=== PATIENT | female | born 1970 | race African-American/Black ===

== ENCOUNTER 2018-07-20 17:24 | Inpatient (IN) | payer OTHER ==
[~2018-07-20] VITALS: Ht 152.4 cm; Wt 131.1 kg
[2018-07-20 17:25] VITALS: BP 191/104
[2018-07-20 18:04] LABS: HEMATOCRIT 27.3 % (37.0-47.0); MCH 17.3 pg (26.0-34.0); MCHC 29.5 g/dL (28.0-37.0); MCV 58.5 fL (80.0-100.0); PLATELET COUNT 346 thou/uL (150-400); RBC 4.66 mil/uL (4.20-5.00); RDW 20.8 % (10.5-14.5); WBC 7.4 thou/uL (4.0-11.0)
[2018-07-20 18:09] LABS: POTASSIUM 3.2 mmol/L (3.5-5.1)
[2018-07-20 18:24] LABS: ALBUMIN 3.5 g/dL (3.4-5.0); TOTAL BILIRUBIN 0.3 mg/dL (<0.1-1.0); TOTAL PROTEIN 8.5 g/dL (6.4-8.2)
[2018-07-20 18:38] LABS: ABSOLUTE NEUTROPHILS 5.7 thou/uL (1.4-8.2)
[2018-07-20 18:39] LABS: ANISOCYTOSIS 2+; HYPOCHROMASIA 2+; MICROCYTES 2+; TARGET CELLS OCCASIONAL
[2018-07-20 18:53] LABS: URINE BILIRUBIN NEGATIVE (Negative); URINE BLOOD TRACE (Negative); URINE CLARITY CLEAR; URINE COLOR YELLOW; URINE GLUCOSE-RANDOM* NEGATIVE (Negative); URINE KETONES NEGATIVE (Negative); URINE LEUKOCYTES-REFLEX TRACE (Negative); URINE NITRITE-REFLEX NEGATIVE (Negative); URINE PROTEIN (DIPSTICK) NEGATIVE (Negative); URINE SPECIFIC GRAVITY 1.015 (1.005-1.035); URINE UROBILINOGEN 0.2 E.U./dl (0.2-1.0)
[2018-07-20 21:11] VITALS: BP 172/11
[2018-07-20 21:24] VITALS: BP 172/11
[2018-07-20 21:58] VITALS: BP 172/92
[2018-07-21 04:43] VITALS: BP 136/80
[2018-07-21 05:58] LABS: CALCIUM 8.6 mg/dL (8.5-10.1); CREATININE 0.8 mg/dL (0.6-1.0); POTASSIUM 3.6 mmol/L (3.5-5.1)
[2018-07-21 05:59] LABS: % SATURATION 3 % (20-39); IRON 13 ug/dL (50-170); TIBC 404 ug/dL (250-450)
[2018-07-21 06:04] LABS: CHOLESTEROL 214 mg/dL (<200); HDL CHOLESTEROL 47 mg/dL (>40); TC:HDL 4.6 Ratio (Not establshd)
[2018-07-21 06:07] LABS: LDL CHOLESTEROL 150 mg/dL (<100); TRIGLYCERIDE 88 mg/dL (<150); VLDL 18 mg/dL (<40)
[2018-07-21 06:27] LABS: FOLIC ACID 10.9 ng/mL (8.6-58.9)
[2018-07-21 06:31] LABS: AMP/METHAMP Negative (Negative); BARBITURATES Negative (Negative); BENZODIAZEPINES Negative (Negative); COCAINE Negative (Negative); METHADONE Negative (Negative); OPIATES Negative (Negative); PCP Negative (Negative)
--- NOTE | 2018-07-21 07:38 | NUR ---
admit pt admitted to room 455 via ed with chf, edema and cough. i liter ivf's given in ed. denies pain on arrival, vss. up with sba. on room air, admission assessment, history med rec completed. continue to monitor.
--- NOTE | 2018-07-21 07:58 | EKG ---
[address] [place] [address] ELECTROCARDIOGRAM REPORT Name: DEVANTE CRENSHAW Room #: 455-P ADM IN M.R.#: [id number] ������������������ Admission: 07/20/18 ������������������ Attend Phys: Deonna Magaña Discharge: ������������������ Date of : 72 Report #: [id number] ����������������������������������������������������������������� [id number] THIS REPORT FOR: //name// [facility] ED Test Date: 2018-07-20 Test Time: 18:27:09 Pat Name: DEVANTE CRENSHAW Department: Room: [facility] Gender: F Student Advisor: : 1970 Requested By: Ayala Shah Order Number: [id number] MD: Jose Han Measurements Intervals [place] Rate: 112 P: 49 [place]: 166 QRS: -16 QRSD: 99 T: 52 QT: 345 QTc: 471 Interpretive Statements Sinus tachycardia Left ventricular hypertrophy Inferior infarct, old No previous ECG available for comparison Electronically Signed On 07-21-2018 7:57:54 CDT by Jose Han [email or web address] ��������������������������������������������� <ELECTRONICALLY SIGNED> ���������������������������������������� By: Jose Han MD, [facility] ��������������������������������������������� 07/21/18 0757 [id number] 182 Jose Han MD, FACC /EPI
--- NOTE | 2018-07-21 09:22 | 2DMMODE ---
[facility] [address] [place] [address] 2 D/M-MODE ECHOCARDIOGRAM Name: DEVANTE CRENSHAW Room #: 455-P ADM IN M.R.#: [id number] ������������� Admission: 07/20/18 ������������� Attend Phys: Deonna Keen Discharge: ��� ������������� ��� Date of : 72 Date of Service: 07/21/18 0921 �� Report #: [id number] �������� ��������������������������������������������[id number] THIS REPORT FOR: //name// APPROVED REPORT Study performed: 07/21/2018 08:29:01 EXAM: Comprehensive 2D, Doppler, and color-flow Echocardiogram Patient Location: Echo lab Room #: [facility] Status: routine BSA: 2.19 HR: 110 bpm BP: 136/80 mmHg Rhythm: NSR/TACHYCARDIA Other Information Study Quality: Good Technically limited study due to morbid obesity. Indications Syncope Cough. Hx: CHF, HTN. 2D Dimensions RVDd: 37.89 mm IVSd: 13.00 (7-11mm) LVOT Diam: 21.66 (18-24mm) LVDd: 60.05 mm PWd: 13.00 (7-11mm) Ascending Ao: 35.50 (22-36mm) LVDs: 46.95 (25-40mm) Aortic Root: 36.53 mm Volumes Left Atrial Volume (Systole) Single Plane 4CH: 85.33 mL Single Plane 2CH: 71.07 mL LA ESV Index: 38.00 mL/m2 Aortic Valve AoV Peak Roberto Carlos.: 1.87 m/s AO Peak Gr.: 14.00 mmHg LVOT Max P.07 mmHg LVOT Max V: 1.23 m/s DIONNA Vmax: 2.43 cm2 Mitral Valve [facility] [address] [address] 2 D/M-MODE ECHOCARDIOGRAM Name: DEVANTE CRENSHAW Room #: 455-P ADM IN .R.#: [id number] ������������� Admission: 07/20/18 ������������� Attend Phys: Deonna Keen Discharge: ��� ������������� ��� Date of : 72 Date of Service: 07/21/18 0921 �� Report #: [id number] �������� ��������������������������������������������[id number] E/A Ratio: 0.7 MV Decel. Time: 173.53 ms MV E Max Roberto Carlos.: 0.87 m/s MV A Roberto Carlos.: 1.19 m/s MV PHT: 50.32 ms IVRT: 71.51 ms Pulmonary Valve PV Peak Roberto Carlos.: 1.10 m/s PV Peak Gr.: 4.86 mmHg Tricuspid Valve TR Peak Roberto Carlos.: 1.96 m/s RAP Estimate: 10.00 mmHg TR Peak Gr.: 15.32 mmHg PA Pressure: 25.00 mmHg Left Ventricle The left ventricle is normal size. Mild concentric left ventricular hypertrophy. Moderate basal septal hypertrophy is present. The left ventricular systolic function is normal. Cannot rule out hypokinesis base of inferior wall LVEF is 50-55%. Mild diastolic dysfunction is present (impaired relaxation pattern). Right Ventricle The right ventricle is normal size. The right ventricular systolic function is normal. Atria Left atrium is mildly dilated. The right atrium size is normal. Aortic Valve Aortic valve is trileaflet, mildly thickened. No aortic regurgitation is present. There is no aortic valvular stenosis. Mitral Valve The mitral valve is normal in structure. Moderate mitral regurgitation. Tricuspid Valve The tricuspid valve is normal in structure. Trace tricuspid regurgitation. Estimated PAP is 25mmHg. Pulmonic Valve The pulmonary valve is normal in structure. There is no pulmonic valvular regurgitation. [facility] [address] [place] [address] 2 D/M-MODE ECHOCARDIOGRAM Name: DEVANTE CRENSHAW Room #: 455-P ADM IN M.R.#: [id number] ������������� Admission: 07/20/18 ������������� Attend Phys: Deonna Keen Discharge: ��� ������������� ��� Date of : 72 Date of Service: 07/21/18 0921 �� Report #: [id number] �������� ��������������������������������������������[id number] [employer]els The aortic root is normal in size. The ascending aorta is normal in size. IVC is normal in size and collapses <50% with inspiration. Pericardium There is no pericardial effusion. <Conclusion> The left ventricular systolic function is normal. Cannot rule out hypokinesis base of inferior wall Mild concentric left ventricular hypertrophy. Moderate basal septal hypertrophy. LVEF is 50-55%. Mild diastolic dysfunction. Aortic valve is trileaflet, mildly thickened. No aortic regurgitation or stenosis The mitral valve is normal in structure. Moderate mitral regurgitation. Trace tricuspid regurgitation. Estimated pulmonary artery pressure of 25mmHg. There is no pericardial effusion. ��������������������������������������������� <ELECTRONICALLY SIGNED> ���������������������������������������� By: Jose Han MD, FACC ��������������������������������������������� 07/21/18920 0 0 Jose Han MD, FAC /INF
--- NOTE | 2018-07-21 10:01 | NUR ---
Nutrition: assess d/t consult for wt change. Pt admitted for cardiomegaly; hx of CHF, HTN. Pt states she has lost 14-23 lbs in past few months; is actively trying to lose weight. Has stopped drinking soda and coffee, is more careful about intake. Goal is to lose ~50 lbs more. Pt having nausea recently, but states appetite is improving slowly. Had no further questions. Consider low risk.
[2018-07-21 15:00] VITALS: BP 143/94
[2018-07-21] MEDS ORDERED: IRON325 PO (15:05)
[2018-07-21] MEDS ORDERED: CARVEDILOL12.5 MG PO (15:05)
[2018-07-21] MEDS ORDERED: COZAAR 50 MG TA50 M1 PO (15:06)
[2018-07-21 15:39] VITALS: BP 136/80
--- NOTE | 2018-07-21 17:51 | NUR ---
Assumed pt care this am, bp being monitored no episodes pf nausea or vomiting.Pt has not verbalized any pain. Pt is able to ambulate from bed to toilet on her own but with stand by assists, gait and balance is steady. IV and oral medication given. Seen by Dr. Magaña, dc orders given. Called in consult for OB_GYN (Dr. Eddy) scheduled on 07/26/18. Gave DC instructions and prescriptions to the pt and details for the ob-offensive coordinator visit. IV removed. Pt is now dc
[2018-07-22 02:10] LABS: GLYCOHEMOGLOBIN (HGB A1C) 5.2 % (4.8-5.6)
== END 2018-07-21 17:50 | disposition home or self-care (01) | DRG 305 ==
LOC: ER 17:24 → EROBS 20:06 → 4W 20:06 → ENTRNSPT 07-21 16:30 → 4W 07-21 17:50
PROVIDERS: Nurse Practitioner Family; Physician Assistant; ADMIT Hospitalist
DX: I16.0 Hypertensive urgency (principal); I50.30 Unspecified diastolic (congestive) heart failure; D64.9 Anemia, unspecified; R00.0 Tachycardia, unspecified; I11.0 Hypertensive heart disease with heart failure; E66.01 Morbid (severe) obesity due to excess calories; E78.5 Hyperlipidemia, unspecified; E87.6 Hypokalemia; D25.9 Leiomyoma of uterus, unspecified; Z68.43 Body mass index [BMI] 50.0-59.9, adult; Z91.14 Patient's other noncompliance with medication regimen
CPT/HCPCS: 10045